=== PATIENT | male | born 1955 | race Caucasian/White ===

== ENCOUNTER 2020-08-30 17:54 | Inpatient (IN) | payer MEDICARE, MEDICAID ==
[~2020-08-30] VITALS: Ht 170.2 cm; Wt 69.9 kg
[2020-08-30 17:58] VITALS: BP 148/64
[2020-08-30] MEDS ORDERED: ALBUTEROL2.5 MG/0.1 INH (18:09)
[2020-08-30] MEDS ORDERED: ALBUTEROL2.5 MG/31 INH (18:09)
[2020-08-30] MEDS ORDERED: SYMBICORT160 MCG/4. INH (18:09)
[2020-08-30] MEDS ORDERED: NEURONTIN100 MG PO (18:10)
[2020-08-30] MEDS ORDERED: NORVASC10 MG PO (18:10)
[2020-08-30] MEDS ORDERED: TOPROL XL50 MG PO (18:10)
[2020-08-30] MEDS ORDERED: ZANAFLEX2 M1 PO (18:10)
[2020-08-30] MEDS ORDERED: LIPITOR 20 MG T20 M1 PO (18:10)
[2020-08-30] MEDS ORDERED: SPIRIVA18 MCG INH (18:10)
[2020-08-30] MEDS ORDERED: PROTONIX40 M2 PO (18:10)
[2020-08-30 18:31] LABS: ABSOLUTE BASOPHILS 0.1 thou/uL (0.0-0.2); ABSOLUTE EOSINOPHILS 0.1 thou/uL (0.0-0.7); ABSOLUTE LYMPHOCYTES 0.9 thou/uL (0.8-5.3); ABSOLUTE MONOCYTES 0.5 thou/uL (0.0-1.2); ABSOLUTE NEUTROPHILS 5.8 thou/uL (1.6-8.1); BASOPHILS 0.7 %; EOSINOPHILS 0.7 %; HEMATOCRIT 47.1 % (42.0-52.0); HEMOGLOBIN 16.1 gm/dL (14.0-18.0); LYMPHOCYTES 12.8 %; MCH 30.5 pg (26.0-34.0); MCHC 34.1 g/dL (28.0-37.0); MCV 89.5 fL (80.0-100.0); MONOCYTES 7.3 %; MPV 7.2 fl. (7.2-11.1); NUCLEATED RBCS 0 /100WBC; PLATELET COUNT* 154 thou/uL (150-400); POLYS 78.5 %; RBC 5.27 mil/uL (4.50-6.00); RDW-CV 15.3 % (10.5-14.5); WBC 7.4 thou/uL (4.0-11.0)
[2020-08-30 18:42] LABS: CALCIUM 8.6 mg/dL (8.5-10.1); CREATININE 0.9 mg/dL (0.6-1.3); POTASSIUM 3.9 mmol/L (3.5-5.1)
[2020-08-30 18:47] LABS: ALBUMIN 3.8 g/dL (3.4-5.0); TOTAL BILIRUBIN 0.5 mg/dL (<0.1-1.0); TOTAL PROTEIN 7.4 g/dL (6.4-8.2)
[2020-08-30] MEDS ORDERED: DOXYCYCLINE 10100 MG PO (18:56)
[2020-08-30] MEDS ORDERED: RAYOS5 MG PO (18:56)
[2020-08-30 19:50] LABS: BE 0.1 mmol/L (-2 to +3); PCO2 36.8 mmHg (35.0-45.0); PO2 73.3 mmHg (75.0-100.0); pH 7.432 (7.340-7.450)
[2020-08-30 20:13] VITALS: BP 118/62
[2020-08-30 20:49] VITALS: BP 105/58
[2020-08-30 23:59] VITALS: BP 94/50
[2020-08-31 04:02] VITALS: BP 110/53
[2020-08-31 09:30] VITALS: BP 125/68
[2020-08-31 11:58] VITALS: BP 117/57
--- NOTE | 2020-08-31 12:54 | EKG ---
[place] [address] ELECTROCARDIOGRAM REPORT Name: DARRYL WOODY Room: [address]R.#: [id number] Admission: 08/30/20 Attend Phys: Sylvie Fields Discharge: Date of : 53 Date of Service: 08/30/201801 Report #: [id number] THIS REPORT FOR: //name// [facility] ED Test Date: 2020-08-30 Test Time: 18:02:41 Pat Name: DARRYL WOODY Department: Room: [facility] Gender: M [employer]: NANCIE : 1955 Requested By: Zain Quezada Order Number: [id number] MD: Alvaro Hall Measurements Intervals [place] Rate: 83 P: 85 [place]: 183 QRS: 88 QRSD: 100 T: 48 QT: 346 QTc: 407 Interpretive Statements Sinus rhythm Baseline wander in lead(s) V2 No previous ECG available for comparison Electronically Signed On 08-31-2020 12:54:42 CDT by Alvaro Hall [email or web address] <ELECTRONICALLY SIGNED> By: Alvaro Hall MD, [facility] 08/31/20 1254 180 180 Alvaro Hall MD, [facility] /EPI
[2020-08-31 16:00] VITALS: BP 101/52
[2020-08-31 20:00] VITALS: BP 103/43
[2020-09-01] VITALS: BP 118/50
[2020-09-01 04:18] VITALS: BP 126/54
[2020-09-01 05:24] LABS: HEMATOCRIT 44.5 % (42.0-52.0); HEMOGLOBIN 14.9 gm/dL (14.0-18.0); MCH 29.8 pg (26.0-34.0); MCHC 33.4 g/dL (28.0-37.0); MCV 89.1 fL (80.0-100.0); MPV 7.6 fl. (7.2-11.1); NUCLEATED RBCS 0 /100WBC; PLATELET COUNT* 158 thou/uL (150-400); RDW-CV 15.6 % (10.5-14.5)
[2020-09-01 05:43] LABS: CALCIUM 8.9 mg/dL (8.5-10.1); CREATININE 0.8 mg/dL (0.6-1.3); POTASSIUM 3.9 mmol/L (3.5-5.1)
[2020-09-01 07:41] LABS: ABSOLUTE LYMPHOCYTES 0.8 thou/uL (0.8-5.3); ABSOLUTE MONOCYTES 0.2 thou/uL (0.0-1.2); ABSOLUTE NEUTROPHILS 14.1 thou/uL (1.6-8.1)
[2020-09-01 07:42] LABS: PLATELET ESTIMATE ADEQUATE
[2020-09-01 08:00] VITALS: BP 101/52
[2020-09-01 12:00] VITALS: BP 115/56
[2020-09-01 19:25] VITALS: BP 107/45
[2020-09-01 23:40] VITALS: BP 101/50
[2020-09-02 04:56] VITALS: BP 97/43
[2020-09-02 08:04] VITALS: BP 107/59
[2020-09-02 11:40] VITALS: BP 116/54
[2020-09-02 19:15] VITALS: BP 110/50
[2020-09-02 23:46] VITALS: BP 112/51
[2020-09-03 04:34] VITALS: BP 127/55
[2020-09-03 04:34] LABS: ABSOLUTE LYMPHOCYTES 0.5 thou/uL (0.8-5.3); ABSOLUTE MONOCYTES 0.3 thou/uL (0.0-1.2); ABSOLUTE NEUTROPHILS 10.1 thou/uL (1.6-8.1); BASOPHILS 0.1 %; HEMOGLOBIN 14.6 gm/dL (14.0-18.0); LYMPHOCYTES 4.7 %; MCH 30.2 pg (26.0-34.0); MCHC 34.1 g/dL (28.0-37.0); MCV 88.6 fL (80.0-100.0); MONOCYTES 3.1 %; MPV 7.7 fl. (7.2-11.1); NUCLEATED RBCS 0 /100WBC; PLATELET COUNT* 147 thou/uL (150-400); POLYS 92.1 %; RBC 4.86 mil/uL (4.50-6.00); WBC 10.9 thou/uL (4.0-11.0)
[2020-09-03 05:01] LABS: CALCIUM 8.1 mg/dL (8.5-10.1); CREATININE 0.6 mg/dL (0.6-1.3); POTASSIUM 3.8 mmol/L (3.5-5.1); TOTAL BILIRUBIN 0.4 mg/dL (<0.1-1.0); TOTAL PROTEIN 6.1 g/dL (6.4-8.2)
[2020-09-03 07:55] VITALS: BP 133/70
[2020-09-03 12:00] VITALS: BP 119/68
[2020-09-03] MEDS ORDERED: MEDROLDOSEPACK PO (13:36)
[2020-09-03] MEDS ORDERED: AMOX TR-K CLV1 EAC4 PO (13:38)
[2020-09-03] MEDS ORDERED: PREDNISONE 10 M10 MG PO (14:31)
[2020-09-03] MEDS ORDERED: ATIVAN0.5 M1 PO (14:38)
[2020-09-03 16:00] VITALS: BP 121/64
[2020-09-03 16:53] VITALS: BP 119/68
== END 2020-09-03 18:38 | disposition home or self-care (01) | DRG 189 ==
LOC: M.ERS 17:54 → M.2W 19:04 → M.TBA-ER 19:04 → M.2W 20:28
PROVIDERS: Emergency Medicine; Internal Medicine; ADMIT Internal Medicine; ATTEND Internal Medicine
PROC: 5A09357 Assistance with Respiratory Ventilation, Less than 24 Consecutive Hours, Continuous Positive Airway Pressure (ICD-10-PCS; principal; 2020-08-31)
PROC: 5A09357 Assistance with Respiratory Ventilation, Less than 24 Consecutive Hours, Continuous Positive Airway Pressure (ICD-10-PCS; 2020-09-02)
DX: J96.01 Acute respiratory failure with hypoxia (principal); J44.1 Chronic obstructive pulmonary disease with (acute) exacerbation; I10 Essential (primary) hypertension; I48.91 Unspecified atrial fibrillation; F17.210 Nicotine dependence, cigarettes, uncomplicated; Z20.822 Contact with and (suspected) exposure to COVID-19; Z79.899 Other long term (current) drug therapy